=== PATIENT | female | born 1945 | race Caucasian/White ===

== ENCOUNTER 2020-09-21 16:16 | Emergency (ER) | payer MEDICARE, BC ==
--- NOTE | 2020-09-21 16:37 | ED ---
General Adult HPI - General Chief complaint: Psychiatric Symptoms Stated complaint: Eval Time Seen by Provider: 09/21/20 16:24 Source: patient, family Mode of arrival: ambulatory Limitations: no limitations - History of Present Illness Initial comments: Dictation was produced using [employer] dictation software. please excuse any grammatical, word or spelling errors. This patient was cared for during a federal and state declared state of emergency secondary to Covid 19 Chief Complaint: 75-year-old female past medical history depression presents with evelyn History of Present Illness: 75-year-old female she is accompanied by both of her sons. Patient's been having manic episodes for the last week or so. She does have a physician that manages her depression. She does take an antidepressant medications. Patient has been acting strangely and has been behaving manically. Signs report that patient has been doing things around the house vigorously. Patient states that her 2 years ago and she's been having v isions of him. Patient has any auditory hallucinations. Patient denies any visual hallucinations patient denies any homicidal or suicidal ideation. One of her sons reports that in the she had a similar episode like this. Patient's son said they contacted 1 of her establish healthcare providers and they instructed to bring the patient to the emergency department to be evaluated for organic processes possibly exacerbating her moods. The ROS documented in this emergency department record has been reviewed and confirmed by me. Those systems with pertinent positive or negative responses have been documented in the HPI. All other systems are other negative and/or noncontributory. PHYSICAL EXAM: General Impression: Alert and oriented x3, not in acute distress HEENT: Normocephalic atraumatic, extra-ocular movements intact, pupils equal and reactive to light bilaterally, mucous membranes moist. Cardiovascular: Heart regular rate and rhythm Chest: Able to complete full sentences, no retractions, no tachypnea Abdomen: abdomen soft, non-tender, non-distended, no organomegaly Musculoskeletal: Pulses present and equal in all extremities, no peripheral edema Motor: no focal deficits noted Neurological: CN II-XII grossly intact, no focal motor or sensory deficits noted Skin: Intact with no visualized rashes Psych: Manic, tangential speech ED course: 75-year-old female presents with manic behavior. Vital signs upon arrival shows heart rate of 133, rest of vital signs within acceptable limits. Repeat heart rate is normal. Laboratory evaluation obtained. CBC, metabolic panel is unremarkable. Urinalysis shows 41 white blood cells. covid 19 negative. Patient has good social situation with her 2 sons. She is well-appearing she does have some manic episodes. She was evaluated by EPS who provided patient with outpatient referral services. She also has a physician overseeing her mental health. Patient given 1 dose of ceftriaxone. She is given prescription for Keflex. She'll be discharged. Return parameters discussed. Patient and family are agreeable with plan. EKG interpretation: Ventricular rate 84, normal sinus rhythm,. Interval 162, QRS 66, QTC 451. No VA prolongation, no QTC prolongation, no ST or T-wave changes noted. No old EKG for comparison. Overall, this EKG is unremarkable - Related Data Previous Rx's Medication Instructions Recorded Cephalexin [Keflex] 500 mg PO Q6HR 7 Days #28 cap 09/21/20 Allergies Allergy/AdvReac Type Severity Reaction Status Date / Time No Known Allergies Allergy Verified 09/21/20 16:22 Review of Systems ROS Statement: Those systems with pertinent positive or pertinent negative responses have been documented in the HPI. ROS Other: All systems not noted in ROS Statement are negative. Past Medical History Past Medical History: Diabetes Mellitus, Hyperlipidemia, Hypertension History of Any Multi-Drug Resistant Organisms: None Reported Past Surgical History: No Surgical Hx Reported Past Psychological History: Depression Smoking Status: Never smoker Past Alcohol Use History: None Reported Past Drug Use History: None Reported General Exam Limitations: no limitations Course Vital Signs 09/21/20 09/21/20 16:19 16:54 Temperature 98.6 F 97.9 F Pulse Rate 133 H 79 Respiratory 22 18 Rate Blood Pressure 108/62 128/64 O2 Sat by Pulse 97 99 Oximetry Medical Decision Making - Lab Data Result diagrams: 09/21/20 16:57 09/21/20 16:57 Lab Results 09/21/20 09/21/20 09/21/20 Range/Units 16:57 16:57 16:57 WBC 6.1 (3.8-10.6) k/uL RBC 3.80 (3.80-5.40) m/uL Hgb 11.9 (11.4-16.0) gm/dL Hct 35.2 (34.0-46.0) % MCV 92.5 (80.0-100.0) fL MCH 31.2 (25.0-35.0) pg MCHC 33.7 (31.0-37.0) g/dL RDW 12.2 (11.5-15.5) % Plt Count 254 (150-450) k/uL MPV 7.9 Neutrophils % 54 % Lymphocytes % 31 % Monocytes % 8 % Eosinophils % 4 % Basophils % 0 % Neutrophils # 3.3 (1.3-7.7) k/uL Lymphocytes # 1.9 (1.0-4.8) k/uL Monocytes # 0.5 (0-1.0) k/uL Eosinophils # 0.2 (0-0.7) k/uL Basophils # 0.0 (0-0.2) k/uL Sodium 134 L (137-145) mmol/L Potassium 4.6 (3.5-5.1) mmol/L Chloride 102 (98-107) mmol/L Carbon Dioxide 25 (22-30) mmol/L Anion Gap 7 mmol/L BUN 29 H (7-17) mg/dL Creatinine 1.14 H (0.52-1.04) mg/dL Est GFR (CKD-EPI)AfAm 54 (>60 ml/min/1.73 sqM) Est GFR (CKD-EPI)NonAf 47 (>60 ml/min/1.73 sqM) Glucose 115 H (74-99) mg/dL Calcium 9.6 (8.4-10.2) mg/dL Urine Color Urine Appearance (Clear) Urine pH (5.0-8.0) Ur Specific [place] (1.001-1.035) Urine Protein (Negative) Urine Glucose (UA) (Negative) Urine Ketones (Negative) Urine Blood (Negative) Urine Nitrite (Negative) Urine Bilirubin (Negative) Urine Urobilinogen (<2.0) mg/dL Ur Leukocyte Esterase (Negative) Urine RBC (0-5) /hpf Urine WBC (0-5) /hpf Ur Squamous Epith Cells (0-4) /hpf Urine Mucus (None) /hpf Coronavirus (PCR) Not Detected (Not Detectd) 09/21/20 Range/Units 16:57 WBC (3.8-10.6) k/uL RBC (3.80-5.40) m/uL Hgb (11.4-16.0) gm/dL Hct (34.0-46.0) % MCV (80.0-100.0) fL MCH (25.0-35.0) pg MCHC (31.0-37.0) g/dL RDW (11.5-15.5) % Plt Count (150-450) k/uL MPV Neutrophils % % Lymphocytes % % Monocytes % % Eosinophils % % Basophils % % Neutrophils # (1.3-7.7) k/uL Lymphocytes # (1.0-4.8) k/uL Monocytes # (0-1.0) k/uL Eosinophils # (0-0.7) k/uL Basophils # (0-0.2) k/uL Sodium (137-145) mmol/L Potassium (3.5-5.1) mmol/L Chloride (98-107) mmol/L Carbon Dioxide (22-30) mmol/L Anion Gap mmol/L BUN (7-17) mg/dL Creatinine (0.52-1.04) mg/dL Est GFR (CKD-EPI)AfAm (>60 ml/min/1.73 sqM) Est GFR (CKD-EPI)NonAf (>60 ml/min/1.73 sqM) Glucose (74-99) mg/dL Calcium (8.4-10.2) mg/dL Urine Color Light Yellow Urine Appearance Clear (Clear) Urine pH 6.0 (5.0-8.0) Ur Specific [place] 1.013 (1.001-1.035) Urine Protein Negative (Negative) Urine Glucose (UA) Negative (Negative) Urine Ketones Negative (Negative) Urine Blood Negative (Negative) Urine Nitrite Negative (Negative) Urine Bilirubin Negative (Negative) Urine Urobilinogen <2.0 (<2.0) mg/dL Ur Leukocyte Esterase Large H (Negative) Urine RBC <1 (0-5) /hpf Urine WBC 41 H (0-5) /hpf Ur Squamous Epith Cells <1 (0-4) /hpf Urine Mucus Rare H (None) /hpf Coronavirus (PCR) (Not Detectd) Disposition Clinical Impression: Evelyn, UTI (urinary tract infection) Disposition: HOME SELF-CARE Condition: Fair Instructions (If sedation given, give patient instructions): Mood Disorders (ED), Urinary Tract Infection in Women (DC) Prescriptions: Cephalexin [Keflex] 500 mg PO Q6HR 7 Days #28 cap Is patient prescribed a controlled substance at d/c from ED?: No Referrals: Nonstaff,Physician [Primary Care Provider] - 1-2 days Time of Disposition: 19:25
[2020-09-21 17:11] LABS: Basophils % (A) 0 %; Eosinophils # (A) 0.2 k/uL (0-0.7); Eosinophils % (A) 4 %; HCT 35.2 % (34.0-46.0); HGB 11.9 gm/dL (11.4-16.0); Lymphocytes # (A) 1.9 k/uL (1.0-4.8); Lymphocytes % (A) 31 %; MCH 31.2 pg (25.0-35.0); MCHC 33.7 g/dL (31.0-37.0); MCV 92.5 fL (80.0-100.0); Mean Platelet Volume 7.9; Monocytes # (A) 0.5 k/uL (0-1.0); Monocytes % (A) 8 %; Neutrophils # (A) 3.3 k/uL (1.3-7.7); Neutrophils % (A) 54 %; Platelet Count 254 k/uL (150-450); RDW 12.2 % (11.5-15.5); WBC 6.1 k/uL (3.8-10.6)
[2020-09-21 17:22] LABS: Calcium 9.6 mg/dL (8.4-10.2); Potassium 4.6 mmol/L (3.5-5.1)
[2020-09-21 17:33] LABS: Appearance,Urine Clear (Clear); Bilirubin,Urine Negative (Negative); Blood,Urine Negative (Negative); Color,Urine Light Yellow; Glucose,Urine (UA) Negative (Negative); Ketones,Urine Negative (Negative); Leukocyte Esterase,Urine Large (Negative); Mucus,Urine Rare /hpf; Nitrite,Urine Negative (Negative); Protein,Urine Negative (Negative); RBC,Urine <1 /hpf (0-5); Specific Gravity,Urine 1.013 (1.001-1.035); Squamous Epithelial Cell,Urine <1 /hpf (0-4); Urobilinogen,Urine <2.0 mg/dL (<2.0); WBC,Urine 41 /hpf (0-5)
[2020-09-21] MEDS ORDERED: cefTRIAXone IN SWFI 1,000 MG/10 ML SYRINGE IVP STA (17:39)
[2020-09-21 18:47] VITALS: TEMP 97.9
[2020-09-21] MEDS ORDERED: CEPHALEXIN 500MG STARTER PACK 4 CAP BTL PO STA (19:25)
[2020-09-21 19:38] VITALS: BP 132/94; PULSE 71; RESP 16
== END 2020-09-21 19:38 | disposition home or self-care (01) ==
LOC: EC 16:16
DX: F32.9 Major depressive disorder, single episode, unspecified (principal); N39.0 Urinary tract infection, site not specified; E11.9 Type 2 diabetes mellitus without complications; E78.5 Hyperlipidemia, unspecified; I10 Essential (primary) hypertension; Z20.822 Contact with and (suspected) exposure to COVID-19
CPT/HCPCS: 36415; 93005; 80048; 85025; 81001; 87086; 87635; 99285; J0696

== ENCOUNTER → 2022-01-05 | Outpatient (CLI) | payer MEDICARE ==
--- NOTE | 2022-01-07 10:01 | MR ---
EXAMINATION TYPE: MR kidney wo/w con DATE OF EXAM: 01/05/2022 COMPARISON: NONE HISTORY: 76-year-old female N28.1, acquired cyst of left kidney, Kidney disease, abnormal prior US. Technique: Multiplanar, multisequence images of the abdomen were obtained before and after administra tion of 7 mL intravenous Gadavist gadolinium contrast. FINDINGS: The patient's previous outside ultrasound is not available for review. Heart normal size without pericardial effusion. There is slight patchy loss of signal intensity on out of phase T1-weighted sequence suggesting mild fatty infiltration of the liver. Scattered small benign hepatic cysts are present measuring up to 1.2 cm. Portal venous system is patent. No biliary ductal dilatation. Large 7.0 cm cyst upper pole left kidney, partially exophytic and prominently splaying the renal pare nchyma. Minimal thin internal septation is present along the inferior margin. Retroaortic left renal vein. 1.3 cm left adrenal nodule. This seems to showing decrease of the 100 signal intensity on out of phas e sequence. An adrenal adenoma can be confirmed with adrenal mass protocol CT in 6 months. Right adrenal gland, right kidney, gallbladder, and spleen show no gross abnormality. Incidental tiny 4 mm cyst uncinate process of pancreas. Otherwise, pancreas mildly atrophic. No upper abdominal ascites, lymphadenopathy, or gross bowel abnormality is seen. IMPRESSION: 1. A 7.0 cm Bosniak category 2 benign cyst upper pole left kidney. It contains a small thin septation along the inferior margin. This cyst is partially exophytic and splays the renal parenchyma. If symp tomatic, cyst aspiration could be considered. 2. Suspect patchy areas of mild fatty infiltration of the liver. A few scattered benign hepatic cysts measuring up to 1.2 cm. 3. A 1.3 cm left adrenal nodule. There seems to be some loss of signal on out of phase sequence. A be nign adrenal adenoma is suspected. Recommend confirmation at a 6 month follow-up adrenal mass protoco l CT.
== END | disposition home or self-care (01) ==
LOC: RADMRIMAIN 11:11
PROVIDERS: ATTEND Internal Medicine
DX: N28.1 Cyst of kidney, acquired (principal); D35.02 Benign neoplasm of left adrenal gland; K76.89 Other specified diseases of liver
CPT/HCPCS: 74183; A9585

== ENCOUNTER → 2022-08-18 | Outpatient (CLI) | payer MEDICARE ==
--- NOTE | 2022-08-18 20:49 | MR ---
EXAMINATION TYPE: MR abdomen wo/w con DATE OF EXAM: 08/18/2022 3:16 PM INDICATION: Patient age:Female; 77 years old; Reason for study: E27.8 adrenal nodule Follow up to abnormal MRI, nodule on left adrenal gland. COMPARISON: MR kidney 01/05/2022. TECHNIQUE: Multiplanar multi-sequence imaging was performed without contrast. Post contrast imaging was performed. Post IV contrast subtraction images were also submitted for review. IV Contrast: 7 cc Gadavist FINDINGS: Significant respiratory motion limits evaluation. LOWER CHEST: Heart is mildly enlarged for size. ABDOMEN Liver: Scattered high T2 cysts are present. No evidence for steatosis. Gallbladder and Bile ducts: Distended without abnormality. Pancreas: Unremarkable. Spleen: The superior aspect of the spleen demonstrates low T2/ intermediate T1 signal lesion 3.1 cm w hich is unchanged from prior in size. Postcontrast imaging is limited due to motion but appears to en julio uniformly background parenchyma which persistent delayed imaging. Adrenal glands: 1.5 cm left adrenal nodule is similar in size and demonstrates loss of signal on chem ical shift out of phase imaging. Kidneys: No evidence for hydronephrosis. Left renal cyst measuring up to 6.9 cm. Stomach and Bowel: Unremarkable as visualized. Peritoneum: No evidence of pneumoperitoneum, free fluid, or adenopathy. Vasculature: Unremarkable. No aortic aneurysm. Musculoskeletal: The osseous structures appear intact. Abdominal wall: Unremarkable. IMPRESSION: 1. Stable left adrenal lipid rich adenoma. No additional follow up for this lesion. 2. No acute intra-abdominal process. 3. Hepatic and left renal cyst. 4. Probable splenic hemangioma.
== END | disposition home or self-care (01) ==
LOC: RADMRIMAIN 14:02
PROVIDERS: ATTEND Internal Medicine
DX: D35.02 Benign neoplasm of left adrenal gland (principal); N28.1 Cyst of kidney, acquired; K76.89 Other specified diseases of liver
CPT/HCPCS: 74183; A9585

== ENCOUNTER → 2024-12-05 | Outpatient (CLI) | payer MEDICARE ==
--- NOTE | 2024-12-05 12:54 | CA ---
Transthoracic Echo Report Name: Chula Patterson Age: 79 Gender: F : 1945 Exam Date: 12/05/2024 11:40 Exam Location: [facility] Ht (in): 62 Wt (lb): 161 Ordering Physician: Farshad Garcia DO Attending/Referring Phys: Hugh Georges DO Roll Cutting Operator Gerald Rhodes, JALYN Procedure CPT: Indications: lightheadedness Cardiac Hx: Technical Quality: Good Contrast 1: Total Dose (mL): Contrast 2: Total Dose (mL): MEASUREMENTS (Male / Female) Normal Values 2D ECHO LV Diastolic Diameter PLAX 5.0 cm 4.2 - 5.9 / 3.9 - 5.3 cm LV Systolic Diameter PLAX 3.5 cm IVS Diastolic Thickness 0.8 cm 0.6 - 1.0 / 0.6 - 0.9 cm LVPW Diastolic Thickness 0.9 cm 0.6 - 1.0 / 0.6 - 0.9 cm LV Relative Wall Thickness 0.3 RV Internal Dim ED PLAX 2.9 cm LVOT Diameter 2.2 cm Aortic Root Diameter 2.9 cm LA Systolic Diameter LX 3.2 cm 3.0 - 4.0 / 2.7 - 3.8 cm LA Volume 31.0 cm??? 18 - 58 / 22 - 52 cm??? LA Volume Index 17.1 cm???/m??? 16 - 28 cm???/m??? DOPPLER MV Area PHT 2.3 cm??? Mitral E Point Velocity 44.8 cm/s Mitral A Point Velocity 77.7 cm/s Mitral E to A Ratio 0.6 MV Deceleration Time 332.3 ms TR Peak Velocity 156.9 cm/s TR Peak Gradient 9.8 mmHg Right Atrial Pressure 5.0 mmHg Pulmonary Artery Systolic Pressu 14.8 mmHg Right Ventricular Systolic Press 14.8 mmHg FINDINGS Left Ventricle Left ventricular ejection fraction is estimated at 55-60%. Normal Left ventricular size, wall thickness, systolic function with no obvious regional wall motion abnormalities. Right Ventricle Normal right ventricular size. Right ventricular systolic pressure within normal limits. Right Atrium Normal right atrial size. Left Atrium Normal left atrial size. Mitral Valve Thickened mitral valve without stenosis. No mitral stenosis. No mitral regurgitation. Aortic Valve Trileaflet aortic valve. Aortic valve sclerosis. No aortic stenosis. No aortic regurgitation. Tricuspid Valve Structurally normal tricuspid valve. No tricuspid stenosis. Trace tricuspid regurgitation. Pulmonic Valve Structurally normal pulmonic valve. No pulmonic stenosis. Trace pulmonic regurgitation. Pericardium No pericardial effusion. Aorta Normal size aortic root and proximal ascending aorta. CONCLUSIONS Normal LV size and systolic function. No significant abnormality on the Doppler exam. No pericardial effusion Previewed by: Dr. Carolina Posey MD (Electronically Signed) Final Date: 05 Dec 2024 12:54
--- NOTE | 2024-12-05 15:30 | US ---
EXAMINATION TYPE: US carotid duplex BILAT DATE OF EXAM: 12/05/2024 COMPARISON: NONE CLINICAL INDICATION: Female, 79 years old with history of R42 LIGHTHEADED; vertigo TECHNIQUE: Grayscale, color Doppler and spectral Doppler evaluation of the bilateral carotid systems and vertebral arteries. Indirect Doppler criteria was utilized. FINDINGS: EXAM MEASUREMENTS: RIGHT: Peak Systolic Velocity (PSV) cm/sec ----- Right CCA: 80.8 ----- Right ICA: 73.2 ----- Right ECA: 78.7 ICA/CCA ratio: .9 RIGHT: End Diastole cm/sec ----- Right CCA: 22.7 ----- Right ICA: 23.7 ----- Right ECA: 11.7 LEFT: Peak Systolic Velocity (PSV) cm/sec ----- Left CCA: 84 ----- Left ICA: 78.8 ----- Left ECA: 68.5 ICA/CCA ratio: .9 LEFT: End Diastole cm/sec ----- Left CCA: 16.7 ----- Left ICA: 30.9 ----- Left ECA: 7.6 VERTEBRALS (direction of flow): Right Vertebral: Antegrade Left Vertebral: Antegrade Rhythm: Normal FRONT END DEVELOPER NOTES: No significant stenosis seen Color Doppler imaging shows patency with blood flow throughout the carotid artery. Spectral waveforms are within normal limits. IMPRESSION: No hemodynamically significant internal carotid artery stenosis on either side. Criteria for Assigning % of Stenosis / Diameter reduction (Estimation based on the indirect measurements of the internal carotid artery velocities (ICA PSV). 1. Normal (no stenosis)=ICA PSV < 180 cm/s: ratio < 2.0: ICA EDV<40 cm/s. 2. Less than 50% stenosis=ICA PSV < 180 cm/s: ratio < 2.0: ICA EDV<40 cm/s. 3. 50 to 69% stenosis=ICA PSV of 180 to 230 cm/s: ration 2.0 ? 4.0: ICA EDV 40-100 cm/s. PSV 125-180 cm/sec and ICA/CCA PSV Ratio ? 2.0 is also consistent with 50-69% stenosis 4. Greater than 70% stenosis to near occlusion= ICA PSV > 230 cm/s: ratio > 4.0: ICA EDV > 100 cm/s. 5. Near occlusion= ICA PSV velocities may be low or undetectable: variable ratio and ICA EDV. 6. Total occlusion=unable to detect flow. [facility], , 12/05/2024 3:28 PM
== END | disposition home or self-care (01) ==
LOC: RADUSWWP 10:27
PROVIDERS: ATTEND Internal Medicine
DX: R42 Dizziness and giddiness (principal)
CPT/HCPCS: 93306; 93880